=== PATIENT | female | born 1970 | race Caucasian/White ===

== ENCOUNTER 2021-09-24 18:34 | Emergency (ER) | payer OTHER ==
[2021-09-24 18:48] VITALS: BP 131/67; PULSE 97; TEMP 98.2; BMI 27.1
[2021-09-24] MEDS ORDERED: IBUPROFEN 100 MG/5 ML UNIT DOSE CUPS PO ONE (19:24)
[2021-09-24] MEDS ORDERED: IBUPROFEN 100 MG/5 ML UNIT DOSE CUPS ONE (19:56)
[2021-09-24] MEDS ORDERED: IBUPROFEN 600 MG TABLET (FP) PO ONE ×2 (20:03→20:13)
== END 2021-09-24 20:32 | disposition home or self-care (01) ==
LOC: JER 18:34
DX: M79.89 Other specified soft tissue disorders (principal)
CPT/HCPCS: 73110-TC-RT-FY; 73130-TC-RT-FY; 99283-25

== ENCOUNTER 2022-05-28 16:48 | Emergency (ER) | payer OTHER ==
[2022-05-28 17:12] VITALS: BP 155/68; PULSE 90; RESP 20; BMI 32.2
[2022-05-28] MEDS ORDERED: DIPHTH,PERTUSS(ACELL),TET 0.5 ML DISP.SYRIN IM ONE ×2 (18:52→19:19)
== END 2022-05-28 19:30 | disposition home or self-care (01) ==
LOC: JERFT 16:48 → JER 16:48
PROC: 3E0234Z Introduction of Serum, Toxoid and Vaccine into Muscle, Percutaneous Approach (ICD-10-PCS; principal; 2022-05-28)
DX: S61.210A Laceration without foreign body of right index finger without damage to nail, initial encounter (principal); W26.8XXA Contact with other sharp object(s), not elsewhere classified, initial encounter
CPT/HCPCS: 90471; 90715; 99283-25

== ENCOUNTER 2024-02-06 10:45 | Inpatient (IN) | payer OTHER ==
[2024-02-06] MEDS: ACETAMINOPHEN 1000 MG/100 ML BAG IVPB ONE (11:37)
[2024-02-06] MEDS: SODIUM CHLORIDE 0.9% 1000 ML INFUS.BAG IV ONE (11:37)
[2024-02-06 11:41] LABS: VENOUS BASE EXCESS 1.4 mmol/L (-2-2); VENOUS O2 SATURATION 60.6 % (70-80); VENOUS PCO2 50.8 mmHg (38-52); VENOUS PH 7.356 (7.310-7.410)
[2024-02-06] MEDS ORDERED: PIPERACILLIN/TAZOB 4.5 GM 4.5 GM/100 ML BAG IVPB ONE (11:41)
[2024-02-06] MEDS ORDERED: VANCOMYCIN 1 GRAM (PRE-DOCKED) 1,000 MG/250 ML BAG IVPB ONE ×3 (11:41→11:50)
[2024-02-06] MEDS ORDERED: ACETAMINOPHEN INJECTION 100 ML ONE (11:41)
[2024-02-06] MEDS: PIPERACILLIN/TAZOB 4.5 GM 4.5 GM in DEXTROSE 5%-WATER 100 ML IVPB ONE (11:42)
[2024-02-06] MEDS: VANCOMYCIN 1,000 MG in DEXTROSE 5%-WATER - 250 ML IVPB ONE (11:43)
[2024-02-06 11:52] LABS: HEMATOCRIT 40.7 % (32.4-45.2); HEMOGLOBIN 13.5 GM/dL (10.7-15.3); MCH 30.4 pg (25.7-33.7); MCHC 33.1 g/dl (32.0-36.0); MEAN CELL VOLUME 91.9 fl (80-96); MEAN PLT VOLUME 8.9 fl (7.5-11.1); PLATELET COUNT 190 10^3/uL (134-434); RBC 4.43 M/mm3 (3.60-5.2); RDW 13.7 % (11.6-15.6); WHITE BLOOD COUNT 10.6 K/mm3 (4.0-10.0)
[2024-02-06 11:57] LABS: INR 0.99 (0.83-1.09); PROTHROMBIN TIME (PATIENT) 11.4 SEC (9.7-13.0)
[2024-02-06 12:00] LABS: POTASSIUM 3.5 mmol/L (3.5-5.1)
[2024-02-06 12:02] LABS: CALCIUM 9.1 mg/dL (8.5-10.1)
[2024-02-06 12:03] LABS: ALBUMIN 3.2 g/dl (3.4-5.0); BLOOD UREA NITROGEN 10.2 mg/dL (7-18)
[2024-02-06 12:06] LABS: CREATININE 0.7 mg/dL (0.55-1.3)
[2024-02-06 12:07] LABS: BILIRUBIN,TOTAL 0.4 mg/dL (0.2-1)
[2024-02-06 12:08] LABS: TOT PROT 6.5 g/dl (6.4-8.2)
[2024-02-06 12:09] LABS: ACTIVATED PTT 29.9 SECONDS (25.2-36.5)
[2024-02-06 13:22] LABS: ANISOCYTOSIS 0; MACROCYTOSIS 0
[2024-02-06] MEDS: SODIUM CHLORIDE 0.9% 500 ML INFUS.BAG IV ONE (13:29)
[2024-02-06] MEDS ORDERED: DOXYCYCLINE HYCLATE 100 MG VIAL ONE (14:06)
[2024-02-06] MEDS: DOXYCYCLINE INJECTION 100 MG in DEXTROSE 5%-WATER 100 ML IVPB ONE (14:13)
[2024-02-06 15:37] LABS: EPI CELLS 2 /uL (0-25.1); HYALINE CASTS 0 /uL (0-3.1); PH,URINE 5.5 (5.0-8.0); URINE APPEARANCE CLEAR; URINE BACTERIA 2206 /uL (0-1359); URINE BILIRUBIN NEGATIVE (NEGATIVE); URINE COLOR YELLOW; URINE GLUCOSE (UA) NEGATIVE (NEGATIVE); URINE KETONE NEGATIVE (NEGATIVE); URINE LEUK ESTERASE 3+ (NEGATIVE); URINE NITRITE POSITIVE (NEGATIVE); URINE PROTEIN NEGATIVE (NEGATIVE); URINE RBC 18 /uL (0-23.9); URINE UROBILINOGEN 0.2 mg/dL (0.2-1.0); URINE WBC 147 /uL (0-25.8)
[2024-02-06 16:11] LABS: LACTIC ACID 3.5 mmol/L (0.4-2.0)
[2024-02-06 17:29] LABS: LACTIC ACID 3.5 mmol/L (0.4-2.0)
[2024-02-06] MEDS ORDERED: PIPERACILLIN/TAZOB 4.5 GM 4.5 GM in DEXTROSE 5%-WATER 100 ML IVPB SCH (20:00)
[2024-02-06] MEDS: PIPERACILLIN/TAZOB 4.5 GM 4.5 GM in DEXTROSE 5%-WATER 100 ML IVPB SCH (21:11)
[2024-02-06] MEDS: LACTATED RINGERS SOLUTION 1,000 ML/1,000 ML INFUS.BAG IV SCH (21:26)
[2024-02-06] MEDS: HEPARIN NA (PORCINE) 5,000 UNITS/ML 1ML VIAL SQ SCH (21:27)
[2024-02-06] MEDS: PHENobarbital SODIUM 65 MG/1 ML VIAL IVPUSH SCH (21:33)
[2024-02-07] MEDS: ONDANSETRON 4 MG/2 ML VIAL IVPUSH PRN (05:25)
[2024-02-07 07:50] LABS: HEMATOCRIT 35.4 % (32.4-45.2); HEMOGLOBIN 11.6 GM/dL (10.7-15.3); MCH 30.1 pg (25.7-33.7); MCHC 32.8 g/dl (32.0-36.0); MEAN CELL VOLUME 91.8 fl (80-96); MEAN PLT VOLUME 8.9 fl (7.5-11.1); PLATELET COUNT 178 10^3/uL (134-434); RBC 3.86 M/mm3 (3.60-5.2); RDW 13.6 % (11.6-15.6); WHITE BLOOD COUNT 19.8 K/mm3 (4.0-10.0)
[2024-02-07 08:11] LABS: POTASSIUM 3.2 mmol/L (3.5-5.1)
[2024-02-07 08:14] LABS: CALCIUM 8.6 mg/dL (8.5-10.1)
[2024-02-07 08:15] LABS: BLOOD UREA NITROGEN 12.8 mg/dL (7-18)
[2024-02-07 08:18] LABS: CREATININE 0.6 mg/dL (0.55-1.3)
[2024-02-07 08:20] LABS: LACTIC ACID 2.4 mmol/L (0.4-2.0)
[2024-02-07 09:46] LABS: ANISOCYTOSIS 0; MACROCYTOSIS 0
[2024-02-07] MEDS: TRIMETHOBENZAMIDE HCL 200MG/2ML INJ IM ONE (11:20)
[2024-02-07] MEDS: KCL 10 MEQ IVPB 10 MEQ/100 ML INFUS.BAG IVPB SCH (18:11)
[2024-02-08 08:08] LABS: POTASSIUM 3.4 mmol/L (3.5-5.1)
[2024-02-08 08:09] LABS: BLOOD UREA NITROGEN 15.4 mg/dL (7-18); CALCIUM 8.6 mg/dL (8.5-10.1)
[2024-02-08 08:12] LABS: CREATININE 0.4 mg/dL (0.55-1.3)
[2024-02-08 08:13] LABS: PHOSPHOROUS 1.8 mg/dL (2.5-4.9)
[2024-02-08 08:14] LABS: BILIRUBIN,TOTAL 0.5 mg/dL (0.2-1); TOT PROT 5.4 g/dl (6.4-8.2)
[2024-02-08 08:37] LABS: ALBUMIN 2.5 g/dl (3.4-5.0)
[2024-02-08 08:58] LABS: BASO % 0.2 % (0-2.0); HEMATOCRIT 30.3 % (32.4-45.2); HEMOGLOBIN 10.1 GM/dL (10.7-15.3); LYMPH % 5.9 % (8-40); MCH 30.5 pg (25.7-33.7); MCHC 33.3 g/dl (32.0-36.0); MEAN CELL VOLUME 91.8 fl (80-96); MEAN PLT VOLUME 9.5 fl (7.5-11.1); MONO % 5.2 % (3.8-10.2); NEUT % 88.7 % (42.8-82.8); PLATELET COUNT 157 10^3/uL (134-434); RDW 13.8 % (11.6-15.6)
[2024-02-08] MEDS: PANTOPRAZOLE SODIUM 40 MG VIAL IVPUSH SCH (09:47)
[2024-02-08] MEDS: D5-1/2NS+20 MEQ KCL - 20 MEQ/1,000 ML INFUS.BAG IV SCH (15:41)
[2024-02-08] MEDS: PHENobarbital SODIUM 65 MG/1 ML VIAL IVPUSH SCH (22:01)
[2024-02-08 23:48] VITALS: BMI 23.3
[2024-02-09 07:44] LABS: HEMATOCRIT 30.1 % (32.4-45.2); MCH 30.8 pg (25.7-33.7); MCHC 33.2 g/dl (32.0-36.0); MEAN CELL VOLUME 92.8 fl (80-96); MEAN PLT VOLUME 8.8 fl (7.5-11.1); PLATELET COUNT 174 10^3/uL (134-434); RBC 3.24 M/mm3 (3.60-5.2); RDW 13.4 % (11.6-15.6); WHITE BLOOD COUNT 12.7 K/mm3 (4.0-10.0)
[2024-02-09 08:16] LABS: POTASSIUM 3.3 mmol/L (3.5-5.1)
[2024-02-09 08:37] LABS: ALBUMIN 2.4 g/dl (3.4-5.0); BLOOD UREA NITROGEN 12.9 mg/dL (7-18); CALCIUM 8.2 mg/dL (8.5-10.1)
[2024-02-09 08:38] LABS: MAGNESIUM 2.1 mg/dL (1.8-2.4)
[2024-02-09 08:40] LABS: CREATININE 0.3 mg/dL (0.55-1.3)
[2024-02-09 08:42] LABS: BILIRUBIN,TOTAL 0.4 mg/dL (0.2-1); TOT PROT 5.4 g/dl (6.4-8.2)
[2024-02-09] MEDS: PANTOPRAZOLE SODIUM 40 MG VIAL IVPUSH SCH (10:00)
[2024-02-09] MEDS: HEPARIN NA (PORCINE) 5,000 UNITS/ML 1ML VIAL SQ SCH (10:00)
[2024-02-09] MEDS: LEVOTHYROXINE SODIUM 100 MCG 5 ML VIAL IVPUSH SCH (10:04)
[2024-02-09] MEDS: PIPERACILLIN/TAZOB 4.5 GM 4.5 GM in DEXTROSE 5%-WATER 100 ML IVPB SCH (10:07)
[2024-02-09] MEDS: CEFTRIAXONE 1 GM in DEXTROSE 5%-WATER - 50 ML IVPB SCH (12:54)
[2024-02-09] MEDS: AMINO ACIDS 4.25%/D5W 1,000 ML IV SCH (15:43)
[2024-02-09] MEDS ORDERED: PIPERACILLIN/TAZOB 4.5 GM 4.5 GM in DEXTROSE 5%-WATER 100 ML IVPB SCH (18:00)
[2024-02-10] MEDS: LEVOTHYROXINE NA 50 MCG TABLET (FP) PO SCH (06:15)
[2024-02-10 07:18] LABS: HEMATOCRIT 30.9 % (32.4-45.2); HEMOGLOBIN 10.3 GM/dL (10.7-15.3); MCH 30.8 pg (25.7-33.7); MCHC 33.5 g/dl (32.0-36.0); PLATELET COUNT 197 10^3/uL (134-434); RBC 3.35 M/mm3 (3.60-5.2); RDW 13.4 % (11.6-15.6); WHITE BLOOD COUNT 8.7 K/mm3 (4.0-10.0)
[2024-02-10 07:33] LABS: POTASSIUM 3.2 mmol/L (3.5-5.1)
[2024-02-10 07:35] LABS: CALCIUM 8.3 mg/dL (8.5-10.1)
[2024-02-10 07:41] LABS: CREATININE 0.2 mg/dL (0.55-1.3)
[2024-02-10 09:05] LABS: ANISOCYTOSIS 0; MACROCYTOSIS 0
[2024-02-10] MEDS: KCL 10 MEQ IVPB 10 MEQ/100 ML INFUS.BAG IVPB SCH (11:38)
[2024-02-11 08:08] LABS: HEMATOCRIT 32.4 % (32.4-45.2); HEMOGLOBIN 10.9 GM/dL (10.7-15.3); MCH 30.5 pg (25.7-33.7); MCHC 33.5 g/dl (32.0-36.0); MEAN CELL VOLUME 90.9 fl (80-96); MEAN PLT VOLUME 8.7 fl (7.5-11.1); PLATELET COUNT 219 10^3/uL (134-434); RBC 3.57 M/mm3 (3.60-5.2); RDW 13.8 % (11.6-15.6); WHITE BLOOD COUNT 7.8 K/mm3 (4.0-10.0)
[2024-02-11 08:29] LABS: MAGNESIUM 1.9 mg/dL (1.8-2.4)
[2024-02-11 08:31] LABS: POTASSIUM 3.3 mmol/L (3.5-5.1)
[2024-02-11 08:33] LABS: PHOSPHOROUS 1.9 mg/dL (2.5-4.9)
[2024-02-11 08:38] LABS: ALBUMIN 2.4 g/dl (3.4-5.0); BLOOD UREA NITROGEN 10.6 mg/dL (7-18); CALCIUM 8.1 mg/dL (8.5-10.1)
[2024-02-11 08:42] LABS: CREATININE 0.3 mg/dL (0.55-1.3)
[2024-02-11 08:43] LABS: BILIRUBIN,TOTAL 0.3 mg/dL (0.2-1); TOT PROT 5.4 g/dl (6.4-8.2)
[2024-02-11 09:01] LABS: ANISOCYTOSIS 0; MACROCYTOSIS 0
[2024-02-12 08:03] LABS: POTASSIUM 3.4 mmol/L (3.5-5.1)
[2024-02-12 08:04] LABS: CALCIUM 8.6 mg/dL (8.5-10.1)
[2024-02-12 08:05] LABS: BLOOD UREA NITROGEN 16.2 mg/dL (7-18)
[2024-02-12 08:07] LABS: CREATININE 0.3 mg/dL (0.55-1.3)
[2024-02-12 08:10] LABS: HEMATOCRIT 32.8 % (32.4-45.2); MCH 30.9 pg (25.7-33.7); MCHC 33.5 g/dl (32.0-36.0); MEAN CELL VOLUME 92.1 fl (80-96); MEAN PLT VOLUME 9.1 fl (7.5-11.1); PLATELET COUNT 258 10^3/uL (134-434); RBC 3.56 M/mm3 (3.60-5.2); RDW 13.7 % (11.6-15.6); WHITE BLOOD COUNT 9.7 K/mm3 (4.0-10.0)
[2024-02-12 09:13] LABS: ANISOCYTOSIS 0; HELMET CELLS 0; HOWELL-JOLLY BODIES 0; MACROCYTOSIS 0; OVALOCYTE 0; ROULEAU 0; SICKELED CELLS 0; TARGET CELLS 0; TEAR DROP CELLS 0; TOXIC GRANULATION 0
[2024-02-14 08:22] LABS: BASO % 0.5 % (0-2.0); EOS % 3.9 % (0-4.5); HEMATOCRIT 32.3 % (32.4-45.2); HEMOGLOBIN 11.1 GM/dL (10.7-15.3); LYMPH % 24.6 % (8-40); MCH 31.3 pg (25.7-33.7); MCHC 34.3 g/dl (32.0-36.0); MEAN CELL VOLUME 91.2 fl (80-96); MEAN PLT VOLUME 8.7 fl (7.5-11.1); MONO % 7.8 % (3.8-10.2); NEUT % 63.2 % (42.8-82.8); PLATELET COUNT 286 10^3/uL (134-434); RBC 3.54 M/mm3 (3.60-5.2); RDW 14.2 % (11.6-15.6); WHITE BLOOD COUNT 7.2 K/mm3 (4.0-10.0)
[2024-02-14 08:40] LABS: POTASSIUM 3.3 mmol/L (3.5-5.1)
[2024-02-14 08:42] LABS: ALBUMIN 2.8 g/dl (3.4-5.0); BLOOD UREA NITROGEN 17.5 mg/dL (7-18); CALCIUM 8.7 mg/dL (8.5-10.1)
[2024-02-14 08:45] LABS: CREATININE 0.4 mg/dL (0.55-1.3)
[2024-02-14 08:47] LABS: BILIRUBIN,TOTAL 0.3 mg/dL (0.2-1); TOT PROT 6.2 g/dl (6.4-8.2)
[2024-02-14] MEDS: KCL 10 MEQ IVPB 10 MEQ/100 ML INFUS.BAG IVPB SCH (21:17)
[2024-02-15 06:56] VITALS: RESP 18; TEMP 97.3
[2024-02-15] MEDS ORDERED: BISACODYL 10 MG SUPP.RECT PR PRN (12:15)
[2024-02-15 15:12] VITALS: BP 108/74; PULSE 74
[2024-02-15] MEDS ORDERED: FERROUS SO4 325 MG TABLET (FP) PO SCH (17:30)
[2024-02-15] MEDS ORDERED: GABAPENTIN 300 MG CAPSULE PO SCH (22:00)
[2024-02-15] MEDS ORDERED: CALCIUM 500MG/VIT-D 200 UNITS COMBO TABLET (FP) PO SCH (22:00)
[2024-02-15] MEDS ORDERED: PHENobarbital 30 MG TABLET PO SCH (22:00)
[2024-02-16] MEDS ORDERED: PANTOPRAZOLE 40 MG TABLET PO SCH (10:00)
[2024-02-16] MEDS ORDERED: ROSUVASTATIN CA 20 MG TABLET PO SCH (22:00)
== END 2024-02-15 16:36 | DRG 871 ==
LOC: JER 10:45 → JERBED 14:11 → J4W 15:42 → J7W 02-08 18:25
PROVIDERS: ADMIT Internal Medicine; ATTEND Nurse Practitioner
DX: A41.9 Sepsis, unspecified organism (principal); J69.0 Pneumonitis due to inhalation of food and vomit; N39.0 Urinary tract infection, site not specified; E03.9 Hypothyroidism, unspecified; K21.9 Gastro-esophageal reflux disease without esophagitis; E87.6 Hypokalemia; G40.909 Epilepsy, unspecified, not intractable, without status epilepticus; E78.5 Hyperlipidemia, unspecified; F79 Unspecified intellectual disabilities
CPT/HCPCS: 0241U-QW; 36415; 71045-TC-FY; 71250-TC; 74018-TC-FY; 74176-TC; 80048; 80053; 80184; 81003; 82803; 82962; 83605; 83735; 84100; 84484; 85025; 85027; 85610; 85730; 87040; 87081; 87086; 87186; 87635; 93005; 93010; 93308; 99291; J0131; J1644

== ENCOUNTER 2024-02-16 08:58 | Inpatient (IN) | payer OTHER ==
[2024-02-16 10:39] LABS: ARTERIAL BLOOD GAS pH 7.423 (7.350-7.450)
[2024-02-16 10:40] LABS: ARTERIAL BLD GAS O2 SATURATION 88.3 % (95-98); ARTERIAL BLOOD GAS BASE EXCESS 1.6 mmol/L (-2-2); ARTERIAL BLOOD GAS PO2 53.2 mmHg (80-100)
[2024-02-16 10:42] LABS: ALLENS TEST POSITIVE
[2024-02-16] MEDS ORDERED: ALBUTEROL SO4 2.5/IPRATROPIUM 0.5 INH SOL 3 ML VIAL.NEB. NEB ONE (11:33)
[2024-02-16] MEDS ORDERED: ACETAMINOPHEN INJECTION 100 ML ONE (11:34)
[2024-02-16 11:37] LABS: HEMATOCRIT 39.8 % (32.4-45.2); MCH 30.3 pg (25.7-33.7); MCHC 32.7 g/dl (32.0-36.0); MEAN CELL VOLUME 92.6 fl (80-96); MEAN PLT VOLUME 9.4 fl (7.5-11.1); PLATELET COUNT 335 10^3/uL (134-434); RBC 4.29 M/mm3 (3.60-5.2); RDW 14.6 % (11.6-15.6); WHITE BLOOD COUNT 25.8 K/mm3 (4.0-10.0)
[2024-02-16] MEDS: ACETAMINOPHEN 1000 MG/100 ML BAG IVPB ONE (11:43)
[2024-02-16] MEDS: SODIUM CHLORIDE 500 ML IV STA (11:43)
[2024-02-16] MEDS: ALBUTEROL SO4 2.5/IPRATROPIUM 0.5 INH SOL 3 ML VIAL.NEB. NEB ONE (11:43)
[2024-02-16 11:58] LABS: POTASSIUM 4.9 mmol/L (3.5-5.1)
[2024-02-16 12:02] LABS: BLOOD UREA NITROGEN 20.9 mg/dL (7-18)
[2024-02-16 12:05] LABS: ANISOCYTOSIS 0; CREATININE 0.6 mg/dL (0.55-1.3); MACROCYTOSIS 0
[2024-02-16 12:06] LABS: ALBUMIN 3.5 g/dl (3.4-5.0); BILIRUBIN,TOTAL 0.7 mg/dL (0.2-1); CALCIUM 10.1 mg/dL (8.5-10.1)
[2024-02-16] MEDS ORDERED: VANCOMYCIN/WATER 1250 MG 1,250 MG/250 ML BAG IVPB ONE (12:35)
[2024-02-16] MEDS ORDERED: PIPERACILLIN/TAZOB 3.375 GM 3.375 GM/50 ML BAG IVPB ONE (12:35)
[2024-02-16] MEDS: PIPERACILLIN/TAZOB 3.375 GM 3.375 GM in DEXTROSE 5%-WATER - 50 ML IVPB ONE (12:38)
[2024-02-16 13:04] LABS: EPI CELLS 25 /uL (0-25.1); HYALINE CASTS 14 /uL (0-3.1); PH,URINE 5.5 (5.0-8.0); URINE APPEARANCE CLEAR; URINE BACTERIA 12 /uL (0-1359); URINE BILIRUBIN NEGATIVE (NEGATIVE); URINE COLOR YELLOW; URINE GLUCOSE (UA) NEGATIVE (NEGATIVE); URINE KETONE TRACE (NEGATIVE); URINE LEUK ESTERASE 1+ (NEGATIVE); URINE NITRITE NEGATIVE (NEGATIVE); URINE PROTEIN NEGATIVE (NEGATIVE); URINE UROBILINOGEN 0.2 mg/dL (0.2-1.0); URINE WBC 88 /uL (0-25.8)
[2024-02-16] MEDS: VANCOMYCIN/WATER 1250 MG 1,250 MG/250 ML BAG IVPB ONE (13:25)
[2024-02-16 13:47] LABS: URINE RBC 31.8 /uL (0-23.9)
[2024-02-16] MEDS ORDERED: HEPARIN NA (PORCINE) 5,000 UNITS/ML 1ML VIAL ONE (14:25)
[2024-02-16] MEDS: SODIUM CHLORIDE 1,000 ML IV SCH (14:30)
[2024-02-16] MEDS: HEPARIN NA (PORCINE) 5,000 UNITS/ML 1ML VIAL SQ SCH (14:34)
[2024-02-16 15:39] VITALS: BMI 20.7
[2024-02-16] MEDS: LEVOTHYROXINE NA 50 MCG TABLET (FP) PO SCH (16:02)
[2024-02-16] MEDS: PIPERACILLIN/TAZOB 4.5 GM 4.5 GM in DEXTROSE 5%-WATER 100 ML IVPB SCH (17:28)
[2024-02-16] MEDS ORDERED: PIPERACILLIN/TAZOB 4.5 GM 4.5 GM in DEXTROSE 5%-WATER 100 ML IVPB SCH (18:00)
[2024-02-16] MEDS: MAGNESIUM HYDROX 2400MG/30ML ORAL SUSPENSION 30 ML CUP PO SCH (22:47)
[2024-02-16] MEDS: ROSUVASTATIN CA 20 MG TABLET PO SCH (22:49)
[2024-02-16] MEDS: GABAPENTIN 400 MG CAPSULE PO SCH (22:49)
[2024-02-16] MEDS: PHENobarbital 15 MG TABLET PO SCH (22:49)
[2024-02-17 08:36] LABS: BASO % 0.7 % (0-2.0); EOS % 0.9 % (0-4.5); HEMATOCRIT 30.9 % (32.4-45.2); LYMPH % 9.8 % (8-40); MCH 30.5 pg (25.7-33.7); MCHC 32.5 g/dl (32.0-36.0); MEAN CELL VOLUME 93.9 fl (80-96); MEAN PLT VOLUME 9.3 fl (7.5-11.1); MONO % 3.8 % (3.8-10.2); NEUT % 84.8 % (42.8-82.8); PLATELET COUNT 254 10^3/uL (134-434); RBC 3.29 M/mm3 (3.60-5.2); RDW 14.5 % (11.6-15.6)
[2024-02-17 09:03] LABS: POTASSIUM 4.2 mmol/L (3.5-5.1)
[2024-02-17 09:06] LABS: BLOOD UREA NITROGEN 15.1 mg/dL (7-18)
[2024-02-17 09:07] LABS: CALCIUM 8.9 mg/dL (8.5-10.1); MAGNESIUM 2.1 mg/dL (1.8-2.4)
[2024-02-17 09:08] LABS: ALBUMIN 2.7 g/dl (3.4-5.0)
[2024-02-17 09:09] LABS: CREATININE 0.5 mg/dL (0.55-1.3); PHOSPHOROUS 2.9 mg/dL (2.5-4.9)
[2024-02-17 09:10] LABS: BILIRUBIN,TOTAL 0.4 mg/dL (0.2-1)
[2024-02-17] MEDS: PHENobarbital SODIUM 65 MG/1 ML VIAL IVPB SCH ×2 (10:32→21:10)
[2024-02-17] MEDS: ALBUTEROL SO4 2.5/IPRATROPIUM 0.5 INH SOL 3 ML VIAL.NEB. NEB SCH (14:55)
[2024-02-17] MEDS: SODIUM CHLORIDE 1,000 ML IV SCH (20:45)
[2024-02-18 10:25] LABS: HEMATOCRIT 30.8 % (32.4-45.2); HEMOGLOBIN 10.2 GM/dL (10.7-15.3); MCH 30.5 pg (25.7-33.7); MEAN CELL VOLUME 92.4 fl (80-96); MEAN PLT VOLUME 9.5 fl (7.5-11.1); PLATELET COUNT 260 10^3/uL (134-434); RBC 3.34 M/mm3 (3.60-5.2); RDW 14.5 % (11.6-15.6)
[2024-02-18 10:50] LABS: POTASSIUM 3.6 mmol/L (3.5-5.1)
[2024-02-18 10:54] LABS: ALBUMIN 2.8 g/dl (3.4-5.0); CALCIUM 8.9 mg/dL (8.5-10.1)
[2024-02-18 10:55] LABS: BLOOD UREA NITROGEN 8.8 mg/dL (7-18); MAGNESIUM 2.3 mg/dL (1.8-2.4)
[2024-02-18 10:58] LABS: CREATININE 0.3 mg/dL (0.55-1.3); PHOSPHOROUS 2.9 mg/dL (2.5-4.9)
[2024-02-18 10:59] LABS: BILIRUBIN,TOTAL 0.4 mg/dL (0.2-1); TOT PROT 5.9 g/dl (6.4-8.2)
[2024-02-19 09:48] LABS: HEMATOCRIT 32.8 % (32.4-45.2); HEMOGLOBIN 10.7 GM/dL (10.7-15.3); MCH 30.2 pg (25.7-33.7); MCHC 32.5 g/dl (32.0-36.0); MEAN CELL VOLUME 92.8 fl (80-96); MEAN PLT VOLUME 9.5 fl (7.5-11.1); PLATELET COUNT 248 10^3/uL (134-434); RBC 3.54 M/mm3 (3.60-5.2); RDW 14.6 % (11.6-15.6); WHITE BLOOD COUNT 5.3 K/mm3 (4.0-10.0)
[2024-02-19 10:07] LABS: POTASSIUM 3.3 mmol/L (3.5-5.1)
[2024-02-19 10:10] LABS: CALCIUM 8.7 mg/dL (8.5-10.1)
[2024-02-19 10:11] LABS: ALBUMIN 2.8 g/dl (3.4-5.0); BLOOD UREA NITROGEN 7.8 mg/dL (7-18); MAGNESIUM 2.3 mg/dL (1.8-2.4)
[2024-02-19 10:14] LABS: CREATININE 0.4 mg/dL (0.55-1.3); PHOSPHOROUS 2.8 mg/dL (2.5-4.9)
[2024-02-19 10:15] LABS: BILIRUBIN,TOTAL 0.4 mg/dL (0.2-1)
[2024-02-19] MEDS: methylPREDNISolone NA SUCC 40 MG/1 ML VIAL IVPUSH SCH (13:24)
[2024-02-19] MEDS ORDERED: BISACODYL 10 MG SUPP.RECT PR PRN (19:34)
[2024-02-19] MEDS: POTASSIUM CHLORIDE ORAL LIQUID 20 MEQ/15 ML PO ONE (20:04)
[2024-02-19] MEDS: PATIENT'S OWN MEDICATION (NON-FORMULARY) (Cannabidiol (Cbd) [Epidiolex] 100 MG/ML Solution PO SCH (21:29)
[2024-02-20 08:43] LABS: HEMATOCRIT 27.6 % (32.4-45.2); HEMOGLOBIN 9.1 GM/dL (10.7-15.3); MCH 30.8 pg (25.7-33.7); MEAN CELL VOLUME 93.2 fl (80-96); MEAN PLT VOLUME 9.4 fl (7.5-11.1); PLATELET COUNT 243 10^3/uL (134-434); RBC 2.97 M/mm3 (3.60-5.2); RDW 14.6 % (11.6-15.6); WHITE BLOOD COUNT 6.5 K/mm3 (4.0-10.0)
[2024-02-20 09:05] LABS: POTASSIUM 3.9 mmol/L (3.5-5.1)
[2024-02-20 09:11] LABS: ALBUMIN 2.5 g/dl (3.4-5.0); BLOOD UREA NITROGEN 5.7 mg/dL (7-18); CALCIUM 8.4 mg/dL (8.5-10.1); MAGNESIUM 2.2 mg/dL (1.8-2.4)
[2024-02-20 09:14] LABS: CREATININE 0.4 mg/dL (0.55-1.3); PHOSPHOROUS 2.7 mg/dL (2.5-4.9)
[2024-02-20 09:15] LABS: BILIRUBIN,TOTAL 0.4 mg/dL (0.2-1); TOT PROT 5.4 g/dl (6.4-8.2)
[2024-02-20] MEDS ORDERED: PHENobarbital 15 MG TABLET PO SCH (10:00)
[2024-02-20] MEDS: CHOLECALCIFEROL (VIT D3) 1,000 UNIT (25 MCG) TABLET PO SCH (10:55)
[2024-02-20] MEDS: FERROUS SO4 300 MG/5 ML ORAL SOLN UNIT DOSE CUPS PO SCH (10:57)
[2024-02-21] MEDS: AMOX TR/POT CLAV 875MG/125MG TABLETS (FP) PO SCH (17:30)
[2024-02-22 13:10] VITALS: BP 110/53; PULSE 75; RESP 17; TEMP 98.3
== END 2024-02-22 12:20 | disposition home or self-care (01) | DRG 871 ==
LOC: JER 08:58 → JERBED 13:04 → J6S 14:52
PROVIDERS: ADMIT Internal Medicine; ATTEND Internal Medicine
DX: A41.9 Sepsis, unspecified organism (principal); J69.0 Pneumonitis due to inhalation of food and vomit; P37.1 Congenital toxoplasmosis; E03.9 Hypothyroidism, unspecified; R09.02 Hypoxemia; F79 Unspecified intellectual disabilities; E78.5 Hyperlipidemia, unspecified; G40.909 Epilepsy, unspecified, not intractable, without status epilepticus; Q65.89 Other specified congenital deformities of hip; R13.10 Dysphagia, unspecified
CPT/HCPCS: 0241U-QW; 36415; 36600; 71045-TC-FY; 71250-TC; 74230-TC-FY; 80053; 81003; 82803; 83605; 83735; 84100; 85025; 85027; 87040; 87081; 87086; 87635; 87899; 92611-GN; 93005; 93010; 94640; 99285-25; J0131; J1644

== ENCOUNTER 2024-02-25 13:15 | Inpatient (IN) | payer OTHER ==
[2024-02-25] MEDS: SODIUM CHLORIDE 0.9% 1000 ML INFUS.BAG IV STA (14:36)
[2024-02-25] MEDS ORDERED: ACETAMINOPHEN INJECTION 100 ML ONE (14:37)
[2024-02-25] MEDS: ACETAMINOPHEN 1000 MG/100 ML BAG IVPB ONE (14:38)
[2024-02-25 14:44] LABS: BASO % 0.2 % (0-2.0); EOS % 0.3 % (0-4.5); HEMATOCRIT 36.3 % (32.4-45.2); HEMOGLOBIN 11.8 GM/dL (10.7-15.3); LYMPH % 8.1 % (8-40); MCH 30.1 pg (25.7-33.7); MCHC 32.4 g/dl (32.0-36.0); MEAN PLT VOLUME 8.8 fl (7.5-11.1); MONO % 2.6 % (3.8-10.2); NEUT % 88.8 % (42.8-82.8); PLATELET COUNT 303 10^3/uL (134-434); RBC 3.91 M/mm3 (3.60-5.2); RDW 15.3 % (11.6-15.6); VENOUS BASE EXCESS 2.2 mmol/L (-2-2); VENOUS O2 SATURATION 98.4 % (70-80); VENOUS PCO2 46.2 mmHg (38-52); VENOUS PH 7.395 (7.310-7.410)
[2024-02-25 14:51] LABS: INR 0.97 (0.83-1.09)
[2024-02-25] MEDS ORDERED: VANCOMYCIN 1 GRAM (PRE-DOCKED) 1,000 MG/250 ML BAG IVPB ONE (15:26)
[2024-02-25] MEDS ORDERED: PIPERACILLIN/TAZOB 4.5 GM 4.5 GM/100 ML BAG IVPB ONE (15:26)
[2024-02-25 15:33] LABS: POTASSIUM 4.5 mmol/L (3.5-5.1)
[2024-02-25 15:34] LABS: CALCIUM 9.2 mg/dL (8.5-10.1)
[2024-02-25 15:35] LABS: BLOOD UREA NITROGEN 6.3 mg/dL (7-18)
[2024-02-25 15:38] LABS: CREATININE 0.5 mg/dL (0.55-1.3)
[2024-02-25 15:40] LABS: BILIRUBIN,TOTAL 0.4 mg/dL (0.2-1); TOT PROT 6.4 g/dl (6.4-8.2)
[2024-02-25] MEDS: PIPERACILLIN/TAZOB 4.5 GM 4.5 GM in DEXTROSE 5%-WATER 100 ML IVPB ONE (15:40)
[2024-02-25] MEDS: VANCOMYCIN 1,000 MG in DEXTROSE 5%-WATER - 250 ML IVPB ONE (16:15)
[2024-02-25 16:47] LABS: EPI CELLS 6 /uL (0-25.1); HYALINE CASTS 2 /uL (0-3.1); URINE APPEARANCE CLOUDY; URINE BACTERIA 2 /uL (0-1359); URINE BILIRUBIN NEGATIVE (NEGATIVE); URINE COLOR YELLOW; URINE GLUCOSE (UA) NEGATIVE (NEGATIVE); URINE KETONE NEGATIVE (NEGATIVE); URINE LEUK ESTERASE TRACE (NEGATIVE); URINE NITRITE NEGATIVE (NEGATIVE); URINE PROTEIN NEGATIVE (NEGATIVE); URINE RBC 8 /uL (0-23.9); URINE UROBILINOGEN 0.2 mg/dL (0.2-1.0); URINE WBC 22 /uL (0-25.8)
[2024-02-25] MEDS ORDERED: diphenhydrAMINE HCL 25 MG CAPSULE (FP) PO PRN (18:12)
[2024-02-25] MEDS ORDERED: SIMETHICONE 40 MG/0.6 ML BOTTLE PO PRN (18:12)
[2024-02-25] MEDS ORDERED: BISACODYL 10 MG SUPP.RECT PR PRN (18:12)
[2024-02-25] MEDS ORDERED: NAPHAZOLINE/PHENIRAMINE OPHTHALMIC 15 ML BOTTLE OU PRN (18:12)
[2024-02-25] MEDS ORDERED: CEFEPIME 2 GM in DEXTROSE 5%-WATER 100 ML IVPB SCH (18:15)
[2024-02-25] MEDS ORDERED: PATIENT'S OWN MEDICATION (NON-FORMULARY) (Cannabidiol (Cbd) [Epidiolex] 100 MG/ML Solution PO SCH (22:00)
[2024-02-25] MEDS: CALCIUM 500MG/VIT-D 200 UNITS COMBO TABLET (FP) PO SCH (22:27)
[2024-02-25] MEDS: MAGNESIUM HYDROX 2400MG/30ML ORAL SUSPENSION 30 ML CUP PO SCH (22:27)
[2024-02-25] MEDS: GABAPENTIN 400 MG CAPSULE PO SCH (22:27)
[2024-02-25] MEDS: PHENobarbital 15 MG TABLET PO SCH (22:27)
[2024-02-25 23:31] VITALS: BMI 31.7
[2024-02-26] MEDS: VANCOMYCIN/WATER FOR INJ (PEG) 1,000 MG/200 ML BAG IVPB SCH (03:13)
[2024-02-26] MEDS: LEVOTHYROXINE NA 50 MCG TABLET (FP) PO SCH (07:21)
[2024-02-26 09:31] LABS: HEMATOCRIT 32.8 % (32.4-45.2); HEMOGLOBIN 10.9 GM/dL (10.7-15.3); MCH 31.3 pg (25.7-33.7); MCHC 33.1 g/dl (32.0-36.0); MEAN CELL VOLUME 94.7 fl (80-96); MEAN PLT VOLUME 8.6 fl (7.5-11.1); PLATELET COUNT 271 10^3/uL (134-434); RBC 3.47 M/mm3 (3.60-5.2); RDW 15.1 % (11.6-15.6); WHITE BLOOD COUNT 7.6 K/mm3 (4.0-10.0)
[2024-02-26] MEDS: ENOXAPARIN NA (PORCINE) 40 MG/0.4 ML DISP.SYRIN SQ SCH (09:39)
[2024-02-26] MEDS: PIPERACILLIN/TAZOB 3.375 GM 3.375 GM in DEXTROSE 5%-WATER - 50 ML IVPB SCH (09:40)
[2024-02-26] MEDS: CHOLECALCIFEROL (VIT D3) 1,000 UNIT (25 MCG) TABLET PO SCH (09:40)
[2024-02-26 09:42] LABS: POTASSIUM 4.2 mmol/L (3.5-5.1)
[2024-02-26] MEDS: FERROUS SO4 300 MG/5 ML ORAL SOLN UNIT DOSE CUPS PO SCH (09:42)
[2024-02-26 09:44] LABS: ALBUMIN 2.9 g/dl (3.4-5.0)
[2024-02-26 09:45] LABS: CALCIUM 9.1 mg/dL (8.5-10.1); MAGNESIUM 2.3 mg/dL (1.8-2.4)
[2024-02-26 09:47] LABS: BLOOD UREA NITROGEN 5.3 mg/dL (7-18)
[2024-02-26 09:48] LABS: PHOSPHOROUS 3.2 mg/dL (2.5-4.9)
[2024-02-26 09:49] LABS: BILIRUBIN,TOTAL 0.3 mg/dL (0.2-1); TOT PROT 6.3 g/dl (6.4-8.2)
[2024-02-26 09:51] LABS: CREATININE 0.4 mg/dL (0.55-1.3)
[2024-02-26] MEDS ORDERED: VANCOMYCIN 1,000 MG in DEXTROSE 5%-WATER - 250 ML IVPB SCH (10:00)
[2024-02-26] MEDS ORDERED: [UNRECOGNIZED DRUG - OTHER] TP SCH (10:00)
[2024-02-26 10:30] VITALS: RESP 18
[2024-02-26] MEDS: ROSUVASTATIN CA 20 MG TABLET PO SCH (21:53)
[2024-02-27] MEDS: PIPERACILLIN/TAZOB 3.375 GM 3.375 GM in DEXTROSE 5%-WATER - 50 ML IVPB SCH (01:35)
[2024-02-27 09:33] LABS: BASO % 0.4 % (0-2.0); EOS % 2.7 % (0-4.5); HEMATOCRIT 32.1 % (32.4-45.2); HEMOGLOBIN 10.5 GM/dL (10.7-15.3); LYMPH % 27.1 % (8-40); MCH 30.4 pg (25.7-33.7); MCHC 32.7 g/dl (32.0-36.0); MEAN CELL VOLUME 93.1 fl (80-96); MEAN PLT VOLUME 9.1 fl (7.5-11.1); MONO % 9.4 % (3.8-10.2); NEUT % 60.4 % (42.8-82.8); PLATELET COUNT 257 10^3/uL (134-434); RBC 3.44 M/mm3 (3.60-5.2); RDW 15.4 % (11.6-15.6); WHITE BLOOD COUNT 4.5 K/mm3 (4.0-10.0)
[2024-02-27 10:01] LABS: POTASSIUM 4.2 mmol/L (3.5-5.1)
[2024-02-27 10:07] LABS: CREATININE 0.5 mg/dL (0.55-1.3)
[2024-02-28 09:50] VITALS: BP 99/61; PULSE 87; TEMP 98.4
== END 2024-02-28 13:05 | DRG 871 ==
LOC: JER 13:15 → JERBED 16:09 → J6S 20:01
PROVIDERS: ADMIT Internal Medicine; ATTEND Internal Medicine
DX: A41.89 Other specified sepsis (principal); J69.0 Pneumonitis due to inhalation of food and vomit; P37.1 Congenital toxoplasmosis; J96.01 Acute respiratory failure with hypoxia; F72 Severe intellectual disabilities; G80.8 Other cerebral palsy; G40.909 Epilepsy, unspecified, not intractable, without status epilepticus; E78.5 Hyperlipidemia, unspecified; K21.9 Gastro-esophageal reflux disease without esophagitis; E03.9 Hypothyroidism, unspecified; E55.9 Vitamin D deficiency, unspecified; R13.10 Dysphagia, unspecified
CPT/HCPCS: 0241U-QW; 36415; 71045-TC-FY; 71250-TC; 80048; 80053; 81003; 82803; 83605; 83735; 84100; 84484; 85025; 85027; 85610; 85730; 86850; 86900; 86901; 87040; 87086; 93005; 93010; 99285-25; J0131

== ENCOUNTER 2024-09-08 07:32 | Inpatient (IN) | payer OTHER ==
[2024-09-08 08:59] LABS: BASOPHILS # 0.03 x10^3/uL (0.01-0.08); HEMATOCRIT 41.4 % (34.1-44.9); HEMOGLOBIN 13.1 g/dL (11.2-15.7); MCHC 31.6 g/dl (32.2-35.5); MEAN CELL VOLUME 93.9 fl (79.4-94.8); MEAN PLT VOLUME 10.6 fl (9.4-12.3); MONOCYTE # 0.88 x10^3/uL (0.24-0.86); MONOCYTE % 4.9 % (4.7-12.5); PLATELET COUNT 204 x10^3/uL (182-369); RDW 13.2 % (12.3-16.6)
[2024-09-08 09:01] LABS: VENOUS BASE EXCESS 4.2 mmol/L (-2-2); VENOUS O2 SATURATION 82.1 % (70-80); VENOUS PCO2 55.7 mmHg (38-52); VENOUS PH 7.363 (7.310-7.410)
[2024-09-08] MEDS: PIPERACILLIN/TAZOB 4.5 GM 4.5 GM in DEXTROSE 5%-WATER 100 ML IVPB ONE (09:01)
[2024-09-08] MEDS ORDERED: ACETAMINOPHEN INJECTION 100 ML ONE (09:01)
[2024-09-08] MEDS ORDERED: PIPERACILLIN/TAZOB 4.5 GM 4.5 GM/100 ML BAG IVPB ONE (09:02)
[2024-09-08] MEDS ORDERED: VANCOMYCIN 1 GM PREMIX (F) 1 GM/200 ML BAG ONE (09:02)
[2024-09-08 09:05] LABS: INR 1.15 (0.83-1.09); PROTHROMBIN TIME (PATIENT) 12.7 SEC (9.7-13.0)
[2024-09-08 09:08] LABS: ACTIVATED PTT 27.9 SECONDS (25.2-36.5)
[2024-09-08] MEDS: LACTATED RINGERS SOLUTION 1000 ML INFUS.BAG IV ONE (09:10)
[2024-09-08] MEDS: ACETAMINOPHEN 1000 MG/100 ML BAG IVPB ONE (09:11)
[2024-09-08] MEDS: VANCOMYCIN 1,000 MG in DEXTROSE 5%-WATER - 250 ML IVPB ONE (09:25)
[2024-09-08 09:26] LABS: POTASSIUM 3.5 mmol/L (3.5-5.1)
[2024-09-08 09:28] LABS: BLOOD UREA NITROGEN 15.7 mg/dL (7-18); CALCIUM 9.3 mg/dL (8.5-10.1)
[2024-09-08 09:29] LABS: ALBUMIN 3.3 g/dl (3.4-5.0); MAGNESIUM 2.4 mg/dL (1.8-2.4)
[2024-09-08 09:32] LABS: CREATININE 0.6 mg/dL (0.55-1.3); LACTIC ACID 2.1 mmol/L (0.4-2.0)
[2024-09-08 09:33] LABS: BILIRUBIN,TOTAL 0.4 mg/dL (0.2-1); TOT PROT 7.2 g/dl (6.4-8.2)
[2024-09-08 09:37] LABS: N-TERMINAL BNP 196.8 pg/ml (5-125)
[2024-09-08 10:04] LABS: PH,URINE 7.5 (5.0-8.0); URINE APPEARANCE TURBID; URINE BILIRUBIN NEGATIVE (NEGATIVE); URINE COLOR YELLOW; URINE GLUCOSE (UA) NEGATIVE (NEGATIVE); URINE KETONE TRACE (NEGATIVE); URINE PROTEIN 1+ (NEGATIVE); URINE UROBILINOGEN 0.2 mg/dL (0.2-1.0)
[2024-09-08 10:05] LABS: URINE LEUK ESTERASE NEGATIVE (NEGATIVE); URINE NITRITE NEGATIVE (NEGATIVE)
[2024-09-08] MEDS: SODIUM CHLORIDE 0.9% 500 ML INFUS.BAG IV ONE (10:58)
[2024-09-08] MEDS ORDERED: AZITHROMYCIN IVPB 500 MG/250 ML BAG IVPB ONE (12:25)
[2024-09-08] MEDS: AZITHROMYCIN IVPB 500 MG in DEXTROSE 5%-WATER - 250 ML IVPB ONE (12:37)
[2024-09-08] MEDS: DEXAMETHASONE SOD PHOSPHATE 4 MG/1 ML VIAL IVPUSH SCH (12:39)
[2024-09-08] MEDS: PANTOPRAZOLE SODIUM 40 MG VIAL IVPUSH SCH (12:39)
[2024-09-08] MEDS ORDERED: DEXAMETHASONE SOD PHOSPHATE 4 MG/1 ML VIAL ONE (12:41)
[2024-09-08] MEDS ORDERED: PANTOPRAZOLE SODIUM 40 MG VIAL ONE (12:42)
[2024-09-08] MEDS ORDERED: BACITRACIN ZINC 15 GM TUBE TOPICAL OINTMENT ONE (12:56)
[2024-09-08] MEDS: SODIUM CHLORIDE 0.9%/KCL 20 MEQ/1,000 ML INFUS.BAG IV SCH (13:04)
[2024-09-08 14:20] LABS: LACTIC ACID 3.1 mmol/L (0.4-2.0)
[2024-09-08] MEDS: SODIUM CHLORIDE 500 ML IV STA (15:00)
[2024-09-08 15:51] VITALS: BMI 21.4
[2024-09-08 15:52] LABS: HEMATOCRIT 35.2 % (34.1-44.9); HEMOGLOBIN 11.1 g/dL (11.2-15.7); MCHC 31.5 g/dl (32.2-35.5); MEAN CELL VOLUME 93.9 fl (79.4-94.8); MEAN PLT VOLUME 10.8 fl (9.4-12.3); PLATELET COUNT 196 x10^3/uL (182-369); RDW 13.3 % (12.3-16.6)
[2024-09-08] MEDS: REMDESIVIR 200 MG in SODIUM CHLORIDE 250 ML IVPB ONE (16:19)
[2024-09-08] MEDS: PHENobarbital SODIUM 65 MG/1 ML VIAL IVPUSH ONE ×2 (17:28)
[2024-09-08] MEDS ORDERED: PIPERACILLIN/TAZOB 3.375 GM 50 ML IVPB SCH (18:00)
[2024-09-08] MEDS ORDERED: PIPERACILLIN/TAZOB 3.375 GM 3.375 GM in DEXTROSE 5%-WATER - 50 ML IVPB SCH (18:00)
[2024-09-08] MEDS: FOSPHENYTOIN SODIUM 100 MG/2 ML VIAL IVPB ONE (19:34)
[2024-09-08] MEDS: PHENobarbital SODIUM 65 MG/1 ML VIAL IVPUSH SCH (21:42)
[2024-09-08] MEDS ORDERED: FOSPHENYTOIN SODIUM 100 MG/2 ML VIAL IVPB SCH (22:00)
[2024-09-09] MEDS: LEVOTHYROXINE SODIUM 100 MCG 5 ML VIAL IVPB SCH (06:31)
[2024-09-09] MEDS ORDERED: ACETAMINOPHEN 325 MG TABLET (FP) PO PRN (09:11)
[2024-09-09] MEDS: PIPERACILLIN/TAZOB 3.375 GM 3.375 GM in DEXTROSE 5%-WATER - 50 ML IVPB SCH (09:31)
[2024-09-09 09:36] LABS: HEMATOCRIT 34.2 % (34.1-44.9); HEMOGLOBIN 10.6 g/dL (11.2-15.7); MEAN CELL VOLUME 95.5 fl (79.4-94.8); MEAN PLT VOLUME 11.5 fl (9.4-12.3); PLATELET COUNT 209 x10^3/uL (182-369); RDW 13.5 % (12.3-16.6)
[2024-09-09 09:58] LABS: POTASSIUM 3.7 mmol/L (3.5-5.1)
[2024-09-09] MEDS ORDERED: ENOXAPARIN NA (PORCINE) 40 MG/0.4 ML DISP.SYRIN SQ SCH (10:00)
[2024-09-09] MEDS ORDERED: PHENobarbital SODIUM 65 MG/1 ML VIAL IVPUSH SCH (10:01)
[2024-09-09] MEDS: LEVOTHYROXINE NA 50 MCG TABLET (FP) PO SCH (10:01)
[2024-09-09] MEDS: GABAPENTIN 400 MG CAPSULE PO SCH (10:01)
[2024-09-09] MEDS: ENOXAPARIN NA (PORCINE) 40 MG/0.4 ML DISP.SYRIN SQ SCH (10:01)
[2024-09-09 10:09] LABS: CALCIUM 9.1 mg/dL (8.5-10.1)
[2024-09-09 10:10] LABS: BLOOD UREA NITROGEN 20.4 mg/dL (7-18); MAGNESIUM 2.2 mg/dL (1.8-2.4)
[2024-09-09 10:13] LABS: CREATININE 0.4 mg/dL (0.55-1.3); PHOSPHOROUS 3.2 mg/dL (2.5-4.9)
[2024-09-09] MEDS: NAPHAZOLINE/PHENIRAMINE OPHTHALMIC 15 ML BOTTLE OU PRN (11:25)
[2024-09-09] MEDS: MINERAL OIL/PET HY-PHL TOPICAL OINTMENT 454 GM JAR TP SCH (11:26)
[2024-09-09] MEDS: REMDESIVIR 100 MG in SODIUM CHLORIDE 250 ML IVPB SCH (12:41)
[2024-09-09] MEDS: DEXTROSE 5%-LACTATED RINGERS 1,000 ML IV SCH ×2 (12:47→17:31)
[2024-09-09] MEDS: CALCIUM 500MG/VIT-D 200 UNITS COMBO TABLET (FP) PO SCH (13:19)
[2024-09-09 17:50] LABS: HEMATOCRIT 31.8 % (34.1-44.9); MCHC 31.4 g/dl (32.2-35.5); MEAN CELL VOLUME 94.6 fl (79.4-94.8); MEAN PLT VOLUME 10.6 fl (9.4-12.3); PLATELET COUNT 184 x10^3/uL (182-369); RDW 13.6 % (12.3-16.6)
[2024-09-09] MEDS: MAGNESIUM HYDROX 2400MG/30ML ORAL SUSPENSION 30 ML CUP PO SCH (21:48)
[2024-09-09] MEDS: ROSUVASTATIN CA 20 MG TABLET PO SCH (21:49)
[2024-09-09] MEDS: PHENobarbital 15 MG TABLET PO SCH (21:50)
[2024-09-09] MEDS: PANTOPRAZOLE SODIUM 40 MG VIAL IVPUSH SCH (21:50)
[2024-09-09] MEDS ORDERED: PHENobarbital 15 MG TABLET PO SCH (22:00)
[2024-09-10] MEDS: SENNOSIDES 8.8 MG/5 ML SYRUP PO SCH (06:18)
[2024-09-10 06:58] LABS: ABSOLUTE IMMATURE GRANULOCYTES 0.02 x10^3/uL (0.0-0.031); BASOPHILS # 0.02 x10^3/uL (0.01-0.08); HEMATOCRIT 32.1 % (34.1-44.9); HEMOGLOBIN 10.1 g/dL (11.2-15.7); MCHC 31.5 g/dl (32.2-35.5); MEAN CELL VOLUME 95.3 fl (79.4-94.8); MEAN PLT VOLUME 10.9 fl (9.4-12.3); MONOCYTE # 0.98 x10^3/uL (0.24-0.86); MONOCYTE % 11.8 % (4.7-12.5); PLATELET COUNT 198 x10^3/uL (182-369); RDW 13.4 % (12.3-16.6)
[2024-09-10 07:00] LABS: HEMATOCRIT 32.4 % (34.1-44.9); MCHC 30.9 g/dl (32.2-35.5); MEAN CELL VOLUME 95.3 fl (79.4-94.8); PLATELET COUNT 197 x10^3/uL (182-369); RDW 13.5 % (12.3-16.6)
[2024-09-10 07:20] LABS: POTASSIUM 3.7 mmol/L (3.5-5.1)
[2024-09-10 07:25] LABS: BLOOD UREA NITROGEN 27.6 mg/dL (7-18); CALCIUM 8.5 mg/dL (8.5-10.1)
[2024-09-10 07:26] LABS: MAGNESIUM 1.9 mg/dL (1.8-2.4)
[2024-09-10 07:29] LABS: CREATININE 0.5 mg/dL (0.55-1.3); PHOSPHOROUS 2.8 mg/dL (2.5-4.9)
[2024-09-10 07:30] LABS: BILIRUBIN,TOTAL 0.3 mg/dL (0.2-1); TOT PROT 5.6 g/dl (6.4-8.2)
[2024-09-10 07:33] LABS: ALBUMIN 2.6 g/dl (3.4-5.0)
[2024-09-10] MEDS ORDERED: DEXAMETHASONE SOD PHOSPHATE 4 MG/1 ML VIAL IVPUSH SCH (10:00)
[2024-09-10] MEDS: DEXAMETHASONE SOD PHOSPHATE 4 MG/1 ML VIAL IVPUSH SCH (12:30)
[2024-09-10] MEDS: DEXTROSE 5%-LACTATED RINGERS 1,000 ML IV SCH (17:02)
[2024-09-10] MEDS: DEXTROSE 5%-0.45% SALINE 1,000 ML IV SCH (17:05)
[2024-09-10] MEDS: PHENobarbital SODIUM 65 MG/1 ML VIAL IVPUSH SCH (21:42)
[2024-09-11] MEDS: LEVOTHYROXINE SODIUM 100 MCG 5 ML VIAL IVPUSH SCH (06:25)
[2024-09-11 07:03] LABS: HEMATOCRIT 33.3 % (34.1-44.9); HEMOGLOBIN 10.5 g/dL (11.2-15.7); MCHC 31.5 g/dl (32.2-35.5); MEAN CELL VOLUME 94.1 fl (79.4-94.8); MEAN PLT VOLUME 11.1 fl (9.4-12.3); PLATELET COUNT 201 x10^3/uL (182-369); RDW 13.3 % (12.3-16.6)
[2024-09-11 07:19] LABS: POTASSIUM 3.2 mmol/L (3.5-5.1)
[2024-09-11 07:22] LABS: CALCIUM 8.4 mg/dL (8.5-10.1)
[2024-09-11 07:23] LABS: ALBUMIN 2.7 g/dl (3.4-5.0); BLOOD UREA NITROGEN 20.2 mg/dL (7-18)
[2024-09-11 07:26] LABS: CREATININE 0.5 mg/dL (0.55-1.3)
[2024-09-11 07:27] LABS: BILIRUBIN,TOTAL 0.4 mg/dL (0.2-1); TOT PROT 5.8 g/dl (6.4-8.2)
[2024-09-11] MEDS: KCL 10 MEQ IVPB 10 MEQ/100 ML INFUS.BAG IVPB SCH (09:29)
[2024-09-11] MEDS: POTASSIUM CHLORIDE TABS 20 MEQ TABLET.ER (FP) PO ONE (10:34)
[2024-09-11] MEDS: diphenhydrAMINE HCL 25 MG CAPSULE (FP) PO PRN (11:32)
[2024-09-11] MEDS ORDERED: ACETAMINOPHEN 1000 MG/100 ML BAG IVPB PRN (14:53)
[2024-09-11] MEDS: PIPERACILLIN/TAZOB 3.375 GM 3.375 GM in DEXTROSE 5%-WATER - 50 ML IVPB SCH ×2 (17:17→18:24)
[2024-09-12 06:57] LABS: HEMATOCRIT 31.4 % (34.1-44.9); HEMOGLOBIN 10.2 g/dL (11.2-15.7); MCHC 32.5 g/dl (32.2-35.5); MEAN CELL VOLUME 92.6 fl (79.4-94.8); PLATELET COUNT 215 x10^3/uL (182-369); RDW 13.1 % (12.3-16.6)
[2024-09-12 07:14] LABS: POTASSIUM 3.5 mmol/L (3.5-5.1)
[2024-09-12 07:17] LABS: ALBUMIN 2.4 g/dl (3.4-5.0); BLOOD UREA NITROGEN 12.6 mg/dL (7-18); MAGNESIUM 1.8 mg/dL (1.8-2.4)
[2024-09-12 07:20] LABS: CREATININE 0.5 mg/dL (0.55-1.3)
[2024-09-12 07:21] LABS: PHOSPHOROUS 2.4 mg/dL (2.5-4.9)
[2024-09-12 07:22] LABS: BILIRUBIN,TOTAL 0.4 mg/dL (0.2-1); TOT PROT 5.2 g/dl (6.4-8.2)
[2024-09-12] MEDS: POTASSIUM PHOSPHATE 15 MM in DEXTROSE 5%-WATER - 250 ML IVPB ONE (17:56)
[2024-09-13 02:00] VITALS: PULSE 65
[2024-09-13 06:03] VITALS: BP 102/58; RESP 16; TEMP 98.1
[2024-09-13 07:54] LABS: HEMATOCRIT 31.6 % (34.1-44.9); HEMOGLOBIN 10.2 g/dL (11.2-15.7); MCHC 32.3 g/dl (32.2-35.5); MEAN CELL VOLUME 92.9 fl (79.4-94.8); MEAN PLT VOLUME 11.1 fl (9.4-12.3); PLATELET COUNT 199 x10^3/uL (182-369); RDW 13.1 % (12.3-16.6)
[2024-09-13 08:17] LABS: POTASSIUM 3.6 mmol/L (3.5-5.1)
[2024-09-13 08:25] LABS: ALBUMIN 2.4 g/dl (3.4-5.0); BLOOD UREA NITROGEN 7.6 mg/dL (7-18)
[2024-09-13 08:27] LABS: BILIRUBIN,TOTAL 0.5 mg/dL (0.2-1)
[2024-09-13 08:28] LABS: CALCIUM 7.8 mg/dL (8.5-10.1); CREATININE 0.4 mg/dL (0.55-1.3); MAGNESIUM 2.2 mg/dL (1.8-2.4)
[2024-09-13 08:29] LABS: PHOSPHOROUS 3.6 mg/dL (2.5-4.9)
== END 2024-09-13 13:20 | DRG 871 ==
LOC: JER 07:32 → JERBED 07:51 → J4S 14:16
PROVIDERS: ADMIT Student in an Organized Health Care Education/Training Program; ATTEND Internal Medicine
PROC: XW033E5 Introduction of Remdesivir Anti-infective into Peripheral Vein, Percutaneous Approach, New Technology Group 5 (ICD-10-PCS; principal; 2024-09-08)
DX: A41.89 Other specified sepsis (principal); J69.0 Pneumonitis due to inhalation of food and vomit; U07.1 COVID-19; E78.5 Hyperlipidemia, unspecified; E03.9 Hypothyroidism, unspecified; K59.00 Constipation, unspecified; K21.9 Gastro-esophageal reflux disease without esophagitis
CPT/HCPCS: 0241U-QW; 36415; 71045-TC-FY; 71250-TC; 80048; 80053; 81003; 82803; 82962; 83605; 83690; 83735; 83880; 84100; 84484; 85025; 85027; 85610; 85730; 86140; 86850; 86900; 86901; 87040; 87086; 93005; 93010; 99285-25; J0131; J0248